=== PATIENT | male | born 1980 | race Caucasian/White ===

== ENCOUNTER 2023-11-11 12:44 | Emergency (ER) | payer SELFPAY ==
[2023-11-11] VITALS (8 sets, daily range): BP systolic 126–173; BP diastolic 85–102; PULSE 78–102; RESP 11–22; TEMP 36.9; O2SAT 93–98; BMI 25.0
--- NOTE | 2023-11-11 12:44 | ECG_ITS ---
APPROVED REPORT Exam: Resting ECG HR:99 bpm ECG Measurements Heart Rate 99 AXES VA 153 P 51 QRSd 109 QRS 107 QT 330 T -2 QTc 386 Conclusion SINUS RHYTHM POSSIBLE LEFT ATRIAL ENLARGEMENT [-0.1mV P-WAVE IN V1/V2] INCOMPLETE RIGHT BUNDLE BRANCH BLOCK Nonspecific T wave change Electronically signed by : VERONICA BURKETT, 11/11/2023 15:48:08
--- NOTE | 2023-11-11 13:00 | XR_ITS ---
FINAL REPORT CLINICAL HISTORY: CHEST PAIN COMPARISON: None FINDINGS: A single portable view of the chest was obtained. The heart size and pulmonary vascularity are within normal limits. The mediastinum is within normal limits. Mild bibasilar opacities are favored to represent atelectasis over pneumonia. The bony thorax is intact. IMPRESSION: Mild bibasilar opacities favor atelectasis over pneumonia. Reviewed, Interpreted and Dictated by Julio Beasley III, MD Transcribed by Carline Elaine Authenticated and [facility]
--- NOTE | 2023-11-11 13:05 | HMH.EDGENADL ---
Discharge Plan Disposition Patient Disposition: Home, Self-Care Prescriptions Prescriptions: New esomeprazole magnesium 20 mg capsule,delayed release(DR/EC) 20 mg PO DAILY 28 Days Qty: 28 0RF Activity Restrictions/Add. Instructions Additional Instructions/Restrictions: Call your family doctor to establish care for this visit to the emergency department and schedule follow-up within 48 hours to ensure improvement. If you have any worsening of your condition or any other concerning signs or symptoms, return to the emergency department or your primary care doctor for further evaluation. Clinical Impressions Clinical Impression: Chest pain, Abdominal pain, epigastric Instructions Patient Instructions: DI for Acute Abdominal Pain Discharge ED Provider: Troy Bentley General Adult HPI General Chief complaint: Abdominal Pain Stated complaint: CHEST PAIN Time Seen by Provider: 11/11/23 12:50 Mode of Arrival: Ambulatory Source of Information: Patient Limitations: No Limitations Description of Symptoms (Recalled from ER Triage Doc. by RN): c/o lower left abdominal pain that started a Friday with one episode of vomiting that night to where he felt like he could pass out. Concerned due to a past bacterial infection he had in his bowels a few months ago which he took antibiotics for, reports this pain feels the same as then. Feels like when he lays back he has pressure to where it makes it hard to breath. History of Present Illness HPI narrative: This is a 43-year-old male history of orchitis in 2022 presenting with abdominal pain and chest pain. Patient states that he has had abdominal pain over the past few days and was concerned that it may be related to the orchitis he had in 2022. Denies any urinary symptoms, penile or testicle tenderness, redness, discharge, or any other concerns of his groin. States his abdominal pain is epigastric, made worse when he lies flat, made better while sitting up. Nothing in particular otherwise makes it any better or worse. No fevers, chills, but last night, 11/09 in the late p.m., the pain started creeping up into my chest, as he points to the left side of his chest. It is intermittent, sharp. No other associated symptoms. Please note that above description of symptoms, in this electronic medical record under categorization of recalled from ER triage doctor by RN are reflective of an initial nursing assessment, however, is not reflective of my full history and physical exam that was personally taken and clarified. Consequentially, this preceding description of symptoms, which may include the patient's categorized chief complaint in the EMR, do not reflect my personal clinical impression, and the ultimate description of history of present illness and patient stated complaints should be deferred to this section of the note. Unless stated otherwise or congruent with this section of the note, additional signs, symptoms, or incongruence should be interpreted as inaccurate with my clinical impression. Related Data Previous Rx's Medication Instructions Recorded esomeprazole magnesium 20 mg 20 mg PO DAILY 28 days #28 caps 11/11/23 capsule,delayed release Allergies Allergy/AdvReac Type Severity Reaction Status Date / Time No Known Allergies Allergy Verified 11/11/23 13:00 [facility] Disclaimer: The information contained in this section may have been updated after the patient was seen, as this information can be updated by other users. Social History Smoking Status: Former smoker alcohol intake: never current occupational status: employed Travel in the last 8 weeks: None ROS Obtained: Yes All systems reviewed & no additional complaints except as documented Physical Exam General General appearance: alert and in no apparent distress Head Head exam: atraumatic and normocephalic Eye Eye exam: Present normal appearance, PERRL and EOMI ENT ENT exam: Present mucous membranes moist Neck Neck exam: Present normal inspection, full ROM and trachea midline Respiratory Respiratory exam: Present normal lung sounds bilaterally; Absent respiratory distress, wheezes, stridor, accessory muscle use or prolonged expiratory phase Cardiovascular Cardiovascular exam: Present regular rate and normal rhythm Abdominal Exam Abdominal exam: Present soft; Absent distention, tenderness, guarding, rebound or rigidity Extremities Exam Extremities exam: Absent edema Neurological Exam Neurological exam: Present alert, oriented X3, CN II-XII intact and normal gait; Absent motor sensory deficit Skin Skin exam: Present warm and dry; Absent diaphoresis or erythema Medical Decision Making Medical Records Medical records reviewed: Yes I reviewed the patient's medical records. Braden Inquiry Pt receiving controlled substance: No Braden was queried for this patient: No Vital Signs: 11/11/23 12:49 11/11/23 12:55 11/11/23 13:00 Temperature 98.4 F Temperature Source Oral Pulse Rate 92 H 94 H Pulse Rate [Left Radial] 102 H Respiratory Rate 18 16 22 Blood Pressure 173/88 H 156/101 H Blood Pressure [Right Arm] 165/102 H Blood Pressure Mean 116 116 Blood Pressure Mean [Right Arm] 123 Blood Pressure Source Blood Pressure Source [Right Arm] Automatic Cuff Blood Pressure Position [Right Arm] Sitting 02 Sat by Pulse Oximetry 98 97 96 Oxygen Delivery Method Room Air 11/11/23 13:31 11/11/23 14:00 11/11/23 14:30 Temperature Temperature Source Pulse Rate 84 Pulse Rate [Left Radial] Respiratory Rate 13 11 L 11 L Blood Pressure 150/93 H 139/88 127/85 Blood Pressure [Right Arm] Blood Pressure Mean 108 99 94 Blood Pressure Mean [Right Arm] Blood Pressure Source Blood Pressure Source [Right Arm] Blood Pressure Position [Right Arm] 02 Sat by Pulse Oximetry 98 93 L 93 L Oxygen Delivery Method 11/11/23 15:00 11/11/23 15:29 Temperature 98.4 F Temperature Source Oral Pulse Rate 78 79 Pulse Rate [Left Radial] Respiratory Rate 11 L 16 Blood Pressure 126/87 126/87 Blood Pressure [Right Arm] Blood Pressure Mean 95 Blood Pressure Mean [Right Arm] Blood Pressure Source Automatic Cuff Blood Pressure Source [Right Arm] Blood Pressure Position [Right Arm] 02 Sat by Pulse Oximetry 94 L Oxygen Delivery Method Room Air Lab Data Lab Results 11/11/23 12:00: Total Bilirubin 0.5, Direct Bilirubin 0.1, Conjugated Bilirubin 0.0, Indirect Bilirubin 0.4, Unconjugated Bilirubin 0.4, AST 36, ALT 26, Alkaline Phosphatase 76, Total Protein 7.4, Albumin 4.6, Lipase 82 11/11/23 12:50: WBC 7.4, RBC 4.96, Hgb 15.8, Hct 47.7, MCV 96.3 H, MCH 31.8 H, MCHC 33.0, RDW 13.1, Plt Count 316, MPV 8.0, Neut % (Auto) 46.6, Lymph % (Auto) 41.7, [place] % (Auto) 5.1, Eos % (Auto) 5.4, Baso % (Auto) 1.3, Neut # (Auto) 3.5, Lymph # (Auto) 3.1, [place] # (Auto) 0.4, Eos # (Auto) 0.4, Baso # (Auto) 0.1, Sodium 140, Potassium 3.7, Chloride 101, Carbon Dioxide 30, Anion Gap 12.7, BUN 13, Creatinine 1.00, Estimated Creat Clear 115, Estimated GFR 82, Est GFR ( Amer) 100, Glucose 129 H, Calcium 9.7, Troponin I < 0.01 11/11/23 13:28: Urine Color Yellow, Urine Appearance Clear, Urine pH 6.0, Ur Specific [place] >= 1.030, Urine Protein Negative, Urine Glucose (UA) Negative, Urine Ketones Negative, Urine Blood Negative, Urine Nitrate Negative, Urine Bilirubin Negative, Urine Urobilinogen 0.2, Ur Leukocyte Esterase Negative, Urine RBC Occasional, Urine WBC Occasional, Ur Squamous Epith Cells Occasional, Urine Bacteria Trace 11/11/23 12:50 11/11/23 12:50 Orders (Tests/Meds): ED MEDICATIONS Discontinued Medications Generic Name Dose Route Start Last Admin Trade Name Freq PRN Reason Stop Dose Admin Belladonna Alkaloids 60 ml 11/11/23 13:06 11/11/23 13:26 Belladonna Alkaloids 60 Ml Ml PO 11/11/23 13:07 60 ml ONCE ONE Administration Sodium Chloride 10 ml 11/11/23 13:00 Sodium Chloride 0.9% 10ml Flush Syringe IV 12/11/23 12:59 NEEDED PRN Maintain IV Site ORDERS Category Date Time Status POCUS Point of Care (ER Only) Stat Exams 11/11/23 14:12 Ordered XR chest portable Stat Exams 11/11/23 13:00 Completed Basic Metabolic Panel Stat Lab 11/11/23 12:50 Completed Complete Blood Count Auto Diff Stat Lab 11/11/23 12:50 Completed Lipase Stat Lab 11/11/23 12:00 Completed Liver Panel Stat Lab 11/11/23 12:00 Completed Troponin I Q3H Lab 11/11/23 16:15 Ordered Troponin I Q3H Lab 11/11/23 19:15 Ordered Troponin I Stat Lab 11/11/23 12:50 Completed UA [Urinalysis and Microscopic] Stat Lab 11/11/23 13:28 Completed HEART Score History (anamnesis): Slightly suspicious ECG: Non-specific disturbance Age: <45 years Risk factors: No known risk factors Troponin: </= normal limit HEART Score: 1 Medical Decision Narrative: This is a 43-year-old male history of orchitis in 2022 presenting with abdominal pain and chest pain. Patient states that he has had abdominal pain over the past few days and was concerned that it may be related to the orchitis he had in 2022. Denies any urinary symptoms, penile or testicle tenderness, redness, discharge, or any other concerns of his groin. States his abdominal pain is epigastric, made worse when he lies flat, made better while sitting up. Nothing in particular otherwise makes it any better or worse. No fevers, chills, but last night, 11/09 in the late p.m., the pain started creeping up into my chest, as he points to the left side of his chest. It is intermittent, sharp. No other associated symptoms. History was obtained via conversation with patient. On arrival, patient hemodynamically stable, alert, oriented x4, appropriate, GCS 15, moving all extremities spontaneously, pupils equal and reactive to light. Full physical exam performed and significant for anxious appearing male who appears very well. Cardiac exam without murmurs, gallops, or rubs, abdomen is soft, nontender. Lungs are clear to auscultation bilaterally. Patient hemodynamically stable, afebrile, normotensive, nontachycardic, saturating appropriately on room air. Differential includes gastritis, enteritis, pericarditis, pancreatitis, anxiety, pneumothorax, ACS, [place], among others. Patient was given GI cocktail for symptomatic management and correction of underlying abnormalities. Workup independently interpreted and significant for nonactionable CBC or chemistry, urinalysis negative. Troponin negative. Cardiac ultrasound within normal limits. See radiology read for full review of final results. Independent interpretation of EKG shows sinus rhythm with incomplete bundle branch block. T wave changes in 3 and aVF, no reciprocal change. No ST changes concerning for ischemia. NV, QRS, QT intervals within normal limits. Heart score 1. On reevaluation, patient feeling much better after GI cocktail. Given patient presentation, workup, history, this most likely represents gastritis versus esophagitis. Because patient at baseline without signs or symptoms of clinical decompensation, deemed appropriate for discharge. Results were relayed to patient who voiced understanding and were agreeable to outpatient management and follow up. I discussed my clinical impression with patient and answered all questions. At this time, the evidence for any other entities in the differential is insufficient to warrant any further testing or ED observation. This was explained as well. Advisory was given that persistent or worsening symptoms require further evaluation. I confirmed the understanding of this discussion. Procedures Limited Ultrasound Indication:: Limited cardiac ultrasound Indication: Chest pain Identified cardiac views: -Cardiac parasternal long axis -Cardiac parasternal short axis -Cardiac apical four-chamber Findings: -Cardiac activity present -Gross wall motion normal -Pericardial effusion absent -Right heart strain absent Impression: -Normal cardiac ultrasound Images were saved to permanent archive The study was technically adequate CPT: 28045 This study was performed by me, and I personally interpreted all images/videos. Based on my clinical judgement, these images were adequate and did not necessitate further imaging. Critical Care Critical Care Time Critical Care Time: No
[2023-11-11 13:09] LABS: Basophils # 0.1 K/mm3 (0-0.2); Basophils % 1.3 % (0.1-2.0); Eosinophils # 0.4 K/mm3 (0.0-0.4); Eosinophils % 5.4 % (0.1-12.0); Hematocrit 47.7 % (42.0-52.0); Hemoglobin 15.8 g/dL (14.1-18.0); Lymphocytes # 3.1 K/mm3 (0.7-4.5); Lymphocytes % 41.7 % (10-50); Mean Corpuscular Hemoglobin 31.8 pg (27.0-31.2); Mean Corpuscular Volume 96.3 fl (80-94); Monocytes # 0.4 K/mm3 (0.1-1.0); Monocytes % 5.1 % (1.7-9.3); Neutrophils # 3.5 K/mm3 (1.8-7.8); Neutrophils % 46.6 % (37.0-80.0); Platelet Count 316 K/mm3 (142-424); Red Blood Count 4.96 M/mm3 (4.60-6.20); Red Cell Distribution Width 13.1 % (11.5-17.5); White Blood Count 7.4 K/mm3 (4.8-10.8)
[2023-11-11 13:11] LABS: Anion Gap 12.7 mEq/L (5-15); Blood Urea Nitrogen 13 mg/dl (9-20); Calcium 9.7 mg/dl (8.4-10.2); Carbon Dioxide 30 mmol/L (22.0-30.0); Chloride 101 mmol/L (98-107); Creatinine Clearance Estimated 115 mL/min (50-200); Estimated Glomerular Filt Rate 82 ml/min (>60); GFR (African American) 100 ML/MIN (>60); Glucose 129 mg/dl (74-100); Potassium 3.7 mmoL/L (3.5-5.1); Sodium 140 mmol/L (136-145)
--- NOTE | 2023-11-11 13:21 | PC.NURSE ---
RAD at for CXR
[2023-11-11 13:23] LABS: Troponin I < 0.01 ng/ml (0.00-0.034)
[2023-11-11] MEDS: BELLADONNA ALKALOIDS 60 ML ML PO (13:26)
[2023-11-11 13:34] LABS: Microscopic, Urine URINE MICROSCOPIC (MICROSCOPIC)
[2023-11-11 13:45] LABS: Appearance,Urine CLEAR (Clear); Bilirubin,Urine Negative (Negative); Blood, Urine Negative (Negative); Color,Urine YELLOW (Yellow); Glucose,Urine (UA) Negative (Negative); Ketones,Urine Negative (Negative); Leukocyte Esterase,Urine Negative (Negative); Nitrate,Urine Negative (Negative); Protein,Urine Negative (Negative); Specific Gravity, Urine >= 1.030 (1.005-1.030); Urobilinogen,Urine 0.2 EU/dl (0.2)
[2023-11-11 13:50] LABS: Albumin Level 4.6 g/dl (3.5-5.0); Alkaline Phosphatase 76 U/L (38-126); Bilirubin,Direct 0.1 mg/dl (0.0-0.4); Bilirubin,Indirect 0.4 mg/dL (0.0-0.9); Bilirubin,Total 0.5 mg/dl (0.2-1.3); Bilirubin,Unconjugated 0.4 mg/dL (0.0-1.1); Lipase 82 U/L (23-300); Total Protein,Serum 7.4 g/dl (6.3-8.2)
[2023-11-11 14:15] LABS: Bacteria,Urine Trace /lpf; RBC,Urine Occasional #/hpf (0-3); Squamous Epithelial Cell,Urine Occasional #/hpf (0-5); WBC,Urine Occasional #/hpf (0-3)
[2023-11-11 14:39] LABS: Alanine Aminotransferase 26 U/L (12-78); Aspartate Amino Transferase 36 U/L (17-59)
== END 2023-11-11 15:30 | disposition home or self-care (01) ==
PROVIDERS: Emergency Provider Emergency Medicine; PCP Family Medicine
DX: R07.9 Chest pain, unspecified (principal); R10.13 Epigastric pain; R10.32 Left lower quadrant pain; Z87.891 Personal history of nicotine dependence; I45.19 Other right bundle-branch block
CPT/HCPCS: 71045; 80048; 80076; 81001; 83690; 84484; 85025; 93005; 99285